=== PATIENT | female | born 1995 | race African-American/Black ===

== ENCOUNTER 2021-03-18 14:04 | Emergency (ER) | payer MEDICAID ==
[~2021-03-18] VITALS: Ht 142.2 cm; Wt 35.0 kg
[2021-03-18 14:46] VITALS: BP 125/78
[2021-03-18] MEDS ORDERED: FAMOTIDINE 20MG TABLET PO ONE (15:00)
[2021-03-18] MEDS ORDERED: DIPHENHYDRAMINE 25MG CAPSULE PO ONE (15:00)
[2021-03-18] MEDS ORDERED: ACETAMINOPHEN 325MG TABLET PO ONE (15:00)
== END 2021-03-18 17:00 | disposition home or self-care (01) ==
LOC: ER 16:24
DX: T78.49XA Other allergy, initial encounter (principal); X58.XXXA Exposure to other specified factors, initial encounter; Z88.0 Allergy status to penicillin; Z98.890 Other specified postprocedural states
CPT/HCPCS: 81025; 99284; Q0163